=== PATIENT | male | born 1990 | race African-American/Black ===

== ENCOUNTER → 2019-01-24 | Outpatient (CLI) | payer OTHER ==
--- NOTE | 2019-01-24 14:38 | REP ---
KUB: Two views. History: Pain in the upper abdomen. Findings: Bowel gas pattern is normal. Psoas margins and flank stripes are intact. No mass, organomegaly, or pathologic calcification is seen. Impression: Negative KUB. Electronically Signed by Juan Fairchild MD 01/24/2019 02:29 P
== END ==
LOC: M LRY 14:03
PROVIDERS: ATTEND Physician Assistant
DX: R10.10 Upper abdominal pain, unspecified (principal)
CPT/HCPCS: 74018; 81002; G0463